=== PATIENT | female | born 1930 | race Caucasian/White ===

== ENCOUNTER 2018-02-09 19:37 | Emergency (ER) | payer OTHER, MEDICARE ==
[2018-02-09 19:37] VITALS: BMI 21.9
[2018-02-09] MEDS ORDERED: Sodium Chloride 0.9% 1,000 ML IV SCH (20:15)
[2018-02-09 20:51] LABS: VENOUS BLOOD GAS BASE EXCESS 7.3 mmol/L (0.0-2.0); VENOUS BLOOD GAS PCO2 48 mmHg (40-60); VENOUS BLOOD GAS PO2 55 mm/Hg (30-55); VENOUS BLOOD PH 7.44 (7.32-7.43)
[2018-02-09 20:58] LABS: BASO % 0.4 % (0.0-2.0); EOS # 0.1 K/uL (0.0-0.7); EOS % 0.6 % (0.0-4.0); HEMOGLOBIN 12.8 g/dL (12.0-16.0); LYMPH # 2.3 K/uL (1.0-4.3); LYMPH % 20.8 % (20.0-40.0); MEAN CELL VOLUME 100.4 fl (81.0-99.0); MEAN CORPUSCULAR HEMOGLOBIN 34.3 pg (27.0-31.0); MEAN CORPUSCULAR HGB CONC 34.2 g/dL (33.0-37.0); MEAN PLATELET VOLUME 7.8 fl (7.2-11.7); MONO % 9.4 % (0.0-10.0); NEUT # 7.5 K/uL (1.8-7.0); NEUT % 68.8 % (50.0-75.0); RBC 3.72 Mil/uL (3.80-5.20); WHITE BLOOD COUNT 10.9 K/uL (4.8-10.8)
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
[2018-02-09 21:08] LABS: ALB/GLOB RATIO 1.2 (1.0-2.1); ALBUMIN 4.3 g/dL (3.5-5.0); ALT/SGPT 34 U/L (9-52); AST/SGOT 41 U/L (14-36); BLOOD UREA NITROGEN 17 mg/dl (7-17); CALCIUM 9.4 mg/dL (8.4-10.2); GFR AFRICAN-AMERICAN > 60; GFR NON-AFRICAN AMERICAN 53
[2018-02-09 22:54] LABS: PROTHROMBIN TIME 11.1 Seconds (9.8-13.1)
[2018-02-09 22:55] LABS: PARTIAL THROMBOPLASTIN TIME 32.1 Seconds (25.6-37.1)
[2018-02-09] MEDS ORDERED: Lidocaine 5% Patch TD STA (23:12)
[2018-02-09 23:13] LABS: URINE BILIRUBIN NEGATIVE (NEGATIVE); URINE BLOOD NEGATIVE (NEGATIVE); URINE CLARITY CLEAR (Clear); URINE COLOR STRAW (YELLOW); URINE GLUCOSE (UA) NEG (Normal); URINE LEUKOCYTE ESTERASE NEG Leu/uL (Negative); URINE PROTEIN NEGATIVE (NEGATIVE); URINE UROBILINOGEN 0.2-1.0 mg/dL (0.2-1.0)
[2018-02-09] MEDS ORDERED: Lidocaine 5% Patch TD ONE (23:28)
[2018-02-09 23:50] VITALS: BP 137/69; PULSE 84; RESP 18; TEMP 98.7
--- NOTE | 2018-02-10 07:36 | CARD ---
APPROVED REPORT Date of service: 02/09/2018 <Conclusion> Normal sinus rhythm Cannot rule out Anterior infarct, age undetermined Abnormal ECG
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
[2018-02-13 23:19] VITALS: O2SAT 93
== END 2018-02-09 23:48 | disposition home or self-care (01) ==
LOC: H.ER 19:37
DX: S29.9XXA Unspecified injury of thorax, initial encounter (principal); V49.59XA Passenger injured in collision with other motor vehicles in traffic accident, initial encounter; Y92.410 Unspecified street and highway as the place of occurrence of the external cause; I10 Essential (primary) hypertension; M06.9 Rheumatoid arthritis, unspecified; M81.0 Age-related osteoporosis without current pathological fracture
CPT/HCPCS: 70450; 71250; 72125; 73090; 73110; 73130; 74176; 80053; 81003; 82803; 83735; 84100; 85025; 85610; 85730; 87040; 87086; 93005; 99284; J2270; J7030